=== PATIENT | female | born 1930 | race Caucasian/White ===

== ENCOUNTER 2016-11-21 17:02 | Emergency (ER) | payer MEDICARE, BC ==
[2016-11-21] MEDS ORDERED: THROMBIN (BOVINE) 5000 UNIT EPITAXIS KIT TP ONE (17:16)
[2016-11-21] MEDS ORDERED: LIDOCAINE 2% JELLY 5 ML TUBE ONE (17:25)
[2016-11-21] MEDS ORDERED: OXYMETAZOLINE HCL 0.05% NASAL SPRAY 15 ML BOTTLE ONE (17:37)
--- NOTE | 2016-11-21 21:01 | ER Document Report ---
ED ENT - General Chief Complaint: Nose Bleed Stated Complaint: NOSE BLEED Time Seen by Provider: 11/21/16 17:15 Mode of Arrival: Ambulatory Information source: Patient Notes: This is an 86-year-old female lungs are relatively presents with a left nosebleed. Patient states she's had nose bleeding on and off for the past 5 days. TRAVEL OUTSIDE OF THE [place] IN LAST 30 DAYS: No - HPI Onset: Last week Onset/Duration: Gradual Severity: None Pain Level: Denies Context: denies: Allergies, Injury, Recent Illness, Travel, Other Location of pain: No: Ears, Face, Jaw, Neck, Nose, Sinus, Throat, Tooth, Other Associated symptoms: None Similar symptoms previously: Yes Recently seen / treated by doctor: No - Related Data Allergies/Adverse Reactions: No Known Drug Allergies Allergy (Verified 05/23/15 17:31) Past Medical History - General Information source: Patient - Social History Smoking Status: Never Smoker Cigarette use (# per day): No Chew tobacco use (# tins/day): No Frequency of alcohol use: None Drug Abuse: None Lives with: Family Family History: Reviewed & Not Pertinent Patient has suicidal ideation: No Patient has homicidal ideation: No - Past Medical History Cardiac Medical History: Reports: Hx Atrial Fibrillation, Hx Hypertension Pulmonary Medical History: Reports: None EENT Medical History: Reports: Nose Neurological Medical History: Reports: Hx Migraine Endocrine Medical History: Reports: None Renal/ Medical History: Reports: None Malignancy Medical History: Reports: None GI Medical History: Reports: None Musculoskeltal Medical History: Reports Hx Arthritis - RA Psychiatric Medical History: Reports: None Traumatic Medical History: Reports: None Infectious Medical History: Reports: None Past Surgical History: Reports: Hx Cholecystectomy, Hx Hysterectomy - Immunizations Hx Diphtheria, Pertussis, Tetanus Vaccination: Yes Hx Pneumococcal Vaccination: 04/09/10 Review of Systems - Review of Systems Constitutional: denies: Chills, Fever EENT: See HPI Cardiovascular: No symptoms reported Respiratory: No symptoms reported Gastrointestinal: No symptoms reported Genitourinary: No symptoms reported Female Genitourinary: No symptoms reported Musculoskeletal: No symptoms reported Skin: No symptoms reported Hematologic/Lymphatic: No symptoms reported Neurological/Psychological: No symptoms reported Physical Exam - Vital signs Vitals: Pulse Resp BP Pulse Ox 61 16 109/80 93 11/21/16 21:18 11/21/16 21:18 11/21/16 21:18 11/21/16 21:18 Notes: Physical exam: GENERAL: 86-year-old female, alert and oriented 3, no acute distress HEAD: Atraumatic, normocephalic. EYES: Pupils equal round and reactive to light, extraocular movements intact, sclera anicteric, conjunctiva are normal. ENT: Right nosebleed. Inspection with nasal speculum and ENT head lamp: Patient does have identifiable bleed anterior ethmoid region (Kiesselbach's plexus) NECK: Normal range of motion, supple without lymphadenopathy LUNGS: Breath sounds clear to auscultation bilaterally and equal. No wheezes rales or rhonchi. HEART: Regular rate and rhythm without murmurs, rubs or gallops. ABDOMEN: Soft, normoactive bowel sounds. No tenderness to palpation. No guarding, no rebound. No masses appreciated. PSYCH: Normal mood, normal affect. SKIN: Warm, Dry, normal turgor, no rashes or lesions noted. Course - Vital Signs Vital signs: Temp Pulse Resp BP Pulse Ox 61 16 109/80 93 11/21/16 21:18 11/21/16 21:18 11/21/16 21:18 11/21/16 21:18 Procedures - Nosebleed Procedure Left Time completed: 19:00 Location: Anterior Supplies used: Thrombin-JMI Notes: Cauterization with silver nitrate Patient observed for an hour and a half with no further bleeding. Discharge - Discharge Clinical Impression: epistaxis left Clinical Impression: (Ruled Out): epistaxis left there Condition: Stable Disposition: HOME, SELF-CARE Instructions: Nosebleed Instructions ([facility]) Additional Instructions: In the emergency room: A site of bleeding was identified in the anterior ethmoid area. The site of bleeding was cauterized with silver nitrate. You were observed several hours and had no significant bleeding. Reexamination of the site shows a cauterized area is holding. Recommendations: I recommend you do not take any Xarelto until this nosebleed clears. I would call your primary care doctor tomorrow and let him know that she was seen in the emergency room and you had your nosebleed cauterized and that I recommended you come off the blood thinner. Can use the Afrin nasal spray twice daily. This is a vasoconstrictor. Return to the ER for any further bleeding: You will need to have your nose packed in the case. I would like you to call an ENT (ears, nose, throat) doctor tomorrow for follow- up appointment: Here is a group of doctors that work out of [place] (they may have an office in town). [facility] [address] [place] [address] Toll Free: Referrals: YONG CHISHOLM, ACCOUNTING ADMINISTRATOR [Primary Care Provider] - Follow up as needed
[2016-11-21 21:19] VITALS: BP 109/80
== END 2016-11-21 21:18 | disposition home or self-care (01) ==
LOC: ER 17:02
PROC: 0W3Q7ZZ Control Bleeding in Respiratory Tract, Via Natural or Artificial Opening (ICD-10-PCS; principal; 2016-11-21)
DX: R04.0 Epistaxis (principal); I48.91 Unspecified atrial fibrillation; I10 Essential (primary) hypertension; Z90.49 Acquired absence of other specified parts of digestive tract; Z90.710 Acquired absence of both cervix and uterus
CPT/HCPCS: 99283

== ENCOUNTER 2019-03-23 13:27 | Emergency (ER) | payer MEDICARE, BC ==
[2019-03-23] MEDS ORDERED: IPRATROPIUM/ALBUTEROL 0.5-2.5 MG/3 ML AMPUL NEB ONE ×2 (14:22→17:46)
--- NOTE | 2019-03-23 14:25 | ER Document Report ---
ED Medical Screen (RME) - General Chief Complaint: Dizziness Stated Complaint: DIZZINESS Time Seen by Provider: 03/23/19 14:15 Primary Care Provider: YONG CHISHOLM MA, [facility] [Primary Care Provider] - Follow up as needed Notes: Patient is a 80-year-old female history of hypertension and stroke presents emergency department with a chief complaint of dizziness. Patient states she has been dizzy for the past few months. Patient reports she is on meclizine daily. Patient reports she is also been more forgetful over the past few weeks. Patient did see the doctor this morning was sent here for an evaluation. She reports the doctor did not know that she does take meclizine daily. Patient denies chest pain. Patient states she was recently given an antibiotic for a cough that she has had for 1 month. Patient reports she continues to have productive cough that is a thick greenish mucus and intermittent wheezing. Patient denies fever. Patient denies abdominal pain, nausea, vomiting or diarrhea. Patient does have a history of a urinary incontinence. Patient states that over the past 4 nights she has noticed a noise coming from her abdomen. Patient reports last bowel movement was today and small but did not notice any blood. TRAVEL OUTSIDE OF THE [place] IN LAST 30 DAYS: No - Related Data Allergies/Adverse Reactions: codeine Allergy (Verified 03/23/19 13:33) Past Medical History - Past Medical History Cardiac Medical History: Reports: Hx Atrial Fibrillation, Hx Hypertension Neurological Medical History: Reports: Hx Migraine Musculoskeltal Medical History: Reports Hx Arthritis - RA Past Surgical History: Reports: Hx Cholecystectomy, Hx Hysterectomy - Immunizations Hx Diphtheria, Pertussis, Tetanus Vaccination: Yes Physical Exam - Vital signs Vitals: Temp Pulse BP Pulse Ox 98.0 F 57 L 172/72 H 93 03/23/19 13:36 03/23/19 13:36 03/23/19 13:36 03/23/19 13:36 - Respiratory Respiratory status: No respiratory distress Breath sounds: Productive cough, Wheezing Notes: UPPER EXPIRATORY WHEEZE BILATERALLY. - Cardiovascular Rhythm: Regular Heart sounds: Normal auscultation, S1 appreciated, S2 appreciated Course - Re-evaluation Re-evalutation: 03/23/19 14:25 I have greeted and performed a rapid initial assessment of this patient. A comprehensive ED assessment and evaluation of the patient, analysis of test results and completion of the medical decision making process will be conducted by additional ED providers. - Vital Signs Vital signs: Temp Pulse Resp BP Pulse Ox 98.0 F 57 L 172/72 H 93 03/23/19 13:36 03/23/19 13:36 03/23/19 13:36 03/23/19 13:36 Doctor's Discharge - Discharge Referrals: YONG CHISHOLM MA, CCCSLP [Primary Care Provider] - Follow up as needed
[2019-03-23 15:47] LABS: ABSOLUTE EOSINOPHILS # (AUTO) 0.1 10^3/uL (0.0-0.6); ABSOLUTE LYMPHOCYTES (AUTO) 2.1 10^3/uL (0.5-4.7); ABSOLUTE MONOCYTES (AUTO) 0.4 10^3/uL (0.1-1.4); ABSOLUTE NEUT (AUTO) 4.7 10^3/uL (1.7-8.2); BASOPHILS % (AUTO) 0.4 % (0-2); EOSINOPHILS % (AUTO) 1.3 % (0-6); HEMATOCRIT 38.7 % (36.0-47.0); HEMOGLOBIN 13.2 g/dL (12.0-15.5); MEAN CORPUSCULAR HEMOGLOBIN 31.2 pg (27.0-33.4); MEAN CORPUSCULAR VOLUME 92 fl (80-97); MONOCYTES % (AUTO) 5.4 % (3-13); PLATELET COUNT 310 10^3/uL (150-450); RED BLOOD COUNT 4.21 10^6/uL (3.72-5.28); RED CELL DISTRIBUTION WIDTH 13.2 % (11.5-14.0); SEGMENTED NEUTROPHILS % (AUTO) 63.9 % (42-78); TOTAL CELLS COUNTED % (AUTO) 100 %; WHITE BLOOD COUNT 7.3 10^3/uL (4.0-10.5)
[2019-03-23 15:48] LABS: ALBUMIN 4.2 g/dL (3.5-5.0); ALKALINE PHOSPHATASE 82 U/L (38-126); ANION GAP 7 (5-19); ASPARTATE AMINO TRANSFERASE 29 U/L (14-36); BILIRUBIN,DIRECT 0.1 mg/dL (0.0-0.4); BILIRUBIN,TOTAL 0.4 mg/dL (0.2-1.3); BLOOD UREA NITROGEN 17 mg/dL (7-20); CALCIUM 9.4 mg/dL (8.4-10.2); CARBON DIOXIDE 30 mmol/L (22-30); CHLORIDE 101 mmol/L (98-107); GLUCOSE 97 mg/dL (75-110); POTASSIUM 5.3 mmol/L (3.6-5.0); TOTAL PROTEIN 7.7 g/dL (6.3-8.2)
--- NOTE | 2019-03-23 16:00 | RADIOLOGY REPORT (SQ) ---
EXAM DESCRIPTION: CHEST 2 VIEWS COMPLETED DATE/TIME: 03/23/2019 3:47 pm REASON FOR STUDY: PRODUCTIVE COUGH COMPARISON: 05/23/2015 TECHNIQUE: Frontal and lateral radiographic views of the chest acquired. NUMBER OF VIEWS: Two view. LIMITATIONS: None. FINDINGS: LUNGS AND PLEURA: No pneumothorax. Small amount of patchy left basilar airspace disease. No pleural effusion. MEDIASTINUM AND HILAR STRUCTURES: Stable. HEART AND VASCULAR STRUCTURES: Stable. BONES: No acute findings. HARDWARE: None in the chest. OTHER: No other significant finding. IMPRESSION: Small amount of patchy left basilar airspace disease. No pleural effusion. TECHNICAL DOCUMENTATION: JOB ID: [id number] [place]-72 2010 [employer]- All Rights Reserved Reading location - IP/workstation name: [email or web address]
--- NOTE | 2019-03-23 17:49 | RADIOLOGY REPORT (SQ) ---
EXAM DESCRIPTION: CT HEAD WITHOUT COMPLETED DATE/TIME: 03/23/2019 5:25 pm REASON FOR STUDY: worsening dizziness COMPARISON: 05/23/2015 TECHNIQUE: Axial images acquired through the brain without intravenous contrast. Images reviewed wit h bone, brain and subdural windows. Images stored on PACS. All CT scanners at this facility use dose modulation, iterative reconstruction, and/or weight based d osing when appropriate to reduce radiation dose to as low as reasonably achievable (ALARA). [facility]: Dose Right [facility]: CareDose [facility]: Dose Right [facility]: Teradose 4D [facility]: CaseReader RADIATION DOSE: CT Rad equipment meets quality standard of care and radiation dose reduction techniq ues were employed. CTDIvol: 53.2 mGy. DLP: 937 mGy-cm.. LIMITATIONS: None. FINDINGS: VENTRICLES: Normal size and contour. CEREBRUM: No masses. No hemorrhage. No midline shift. Stable appearance of the white matter. No evid ence for acute infarction. CEREBELLUM: No masses. No hemorrhage. No alteration of density. No evidence for acute infarction. EXTRA-AXIAL SPACES: No fluid collections. ORBITS AND GLOBE: No intra- or extraconal masses. Normal contour of globe without masses. CALVARIUM: No fracture. PARANASAL SINUSES: No fluid or mucosal thickening. SOFT TISSUES: No mass or hematoma. OTHER: No other significant finding. IMPRESSION: NO ACUTE INTRACRANIAL FINDINGS. EVIDENCE OF ACUTE STROKE: NO. TECHNICAL DOCUMENTATION: JOB ID: [id number] [place]-72 Quality ID # [id number]: Final reports with documentation of one or more dose reduction techniques (e.g., Au tomated exposure control, adjustment of the mA and/or kV according to patient size, use of iterative reconstruction technique) 2010 [employer]- All Rights Reserved Reading location - IP/workstation name: [email or web address]
[2019-03-23 18:06] LABS: APPEARANCE,URINE SLIGHTLY-CLOUDY; BILIRUBIN,URINE NEGATIVE (NEGATIVE); COLOR,URINE YELLOW; GLUCOSE, URINE NEGATIVE (NEGATIVE); KETONES,URINE NEGATIVE (NEGATIVE); LEUKOCYTE ESTERASE,URINE LARGE (NEGATIVE); NITRITE,URINE POSITIVE (NEGATIVE); PROTEIN,URINE NEGATIVE (NEGATIVE); URINE SPECIFIC GRAVITY 1.011; UROBILINOGEN,URINE NEGATIVE mg/dL (<2.0)
[2019-03-23] MEDS ORDERED: CEPHALEXIN 500 MG CAPSULE PO ONE (18:50)
[2019-03-23] MEDS ORDERED: LEVOFLOXACIN 750 MG TABLET PO ONE (18:51)
--- NOTE | 2019-03-23 18:57 | ER Document Report ---
ED General - General Chief Complaint: Dizziness Stated Complaint: DIZZINESS Time Seen by Provider: 03/23/19 14:15 Primary Care Provider: YONG CHISHOLM [facility], [facility] [SPEECH THERAPY] - Follow up as needed TRAVEL OUTSIDE OF THE [place] IN LAST 30 DAYS: No - HPI Notes: Patient is an 88-year-old female who presents emergency department for evaluation of dizziness. She states is been ongoing but seems worse over the last several days. She had a cough and congestion, was treated for that, but seems to think that it is improving. She denies any pain of any sort. She states that she believes the dizziness is secondary to all the medication she is taking. She does not have any pain that is out of the ordinary, complains only of joint pain from arthritis." No fevers or chills. No nausea or vomiting. No dysuria, hematuria, urinary frequency. - Related Data Allergies/Adverse Reactions: codeine Allergy (Verified 03/23/19 13:33) Past Medical History - General Information source: Patient - Social History Smoking Status: Never Smoker Family History: Reviewed & Not Pertinent Patient has suicidal ideation: No Patient has homicidal ideation: No - Past Medical History Cardiac Medical History: Reports: Hx Atrial Fibrillation, Hx Hypertension Neurological Medical History: Reports: Hx Migraine Musculoskeletal Medical History: Reports Hx Arthritis - RA Past Surgical History: Reports: Hx Cholecystectomy, Hx Hysterectomy - Immunizations Hx Diphtheria, Pertussis, Tetanus Vaccination: Yes Hx Pneumococcal Vaccination: 04/09/10 Review of Systems - Review of Systems Constitutional: No symptoms reported EENT: See HPI Cardiovascular: No symptoms reported Respiratory: See HPI Gastrointestinal: No symptoms reported Genitourinary: No symptoms reported Musculoskeletal: No symptoms reported Skin: No symptoms reported Neurological/Psychological: No symptoms reported Physical Exam - Vital signs Vitals: Temp Pulse BP Pulse Ox 98.0 F 57 L 172/72 H 93 03/23/19 13:36 03/23/19 13:36 03/23/19 13:36 03/23/19 13:36 - Notes Notes: Vital signs reviewed, please refer to chart. Head is normocephalic, atraumatic. Pupils equal round, reactive to light. Neck is supple without meningismus. Heart is regular rate and rhythm. Lungs reveal mild expiratory wheezes at the base. Abdomen is soft, nontender, normoactive bowel sounds throughout. Extremities without cyanosis, clubbing. Posterior calves are nontender. Peripheral pulses are equal. Skin is warm and dry. Patient is awake, alert, oriented x3. Cranial nerves II - XII are grossly intact without focal neurological deficits. Strength is plus 5 out of 5 bilateral upper and lower extremities. Sensation is intact. Reflexes symmetrical. Intact [id number], rapid alternating movements, [id number]. Course - Re-evaluation Re-evalutation: 03/23/19 18:54 Patient presents emergency department for evaluation of dizziness. She does have some mild wheezing. Chest x-ray showed potential left basilar infiltrate, patchy. My suspicion is that this is actually an improved infiltrate, lagging behind. She also does have a nitrate positive urine specimen. She has no leukocytosis. Her vital signs are unremarkable. She is very anxious to go home, states she does not drive after dark. I did go ahead and give her a dose of Levaquin. This should cover for possible pneumonia as well as UTI. She is to follow-up with her primary care physician next week, return to the ED with worsening or new concerning symptoms of any sort. - Vital Signs Vital signs: Temp Pulse Resp BP Pulse Ox 98.0 F 57 L 172/72 H 93 03/23/19 13:36 03/23/19 13:36 03/23/19 13:36 03/23/19 13:36 - Laboratory Result Diagrams: 03/23/19 14:51 03/23/19 14:51 Laboratory results interpreted by me: 03/23/19 03/23/19 14:51 14:51 Potassium 5.3 H Est GFR (MDRD) Non-Af 56 L Urine Blood MODERATE H Urine Nitrite POSITIVE H Ur Leukocyte Esterase LARGE H - EKG Interpretation by Me Additional EKG results interpreted by me: 03/23/19 18:55 Sinus bradycardia with a rate of 51 bpm. Normal axis and intervals, no acute ST changes concerning for ischemia or infarction. Discharge - Discharge Clinical Impression: UTI (urinary tract infection), Pneumonia Condition: Stable Disposition: HOME, SELF-CARE Instructions: Urinary Tract Infection ([facility]), Dizziness ([facility]), Pneumonia ([facility]) Additional Instructions: Take all the antibiotic as prescribed, starting tomorrow. Follow-up with your doctor next week. If you develop worsening or new concerning symptoms of any sort, return immediately to the emergency department for evaluation. Referrals: YONG CHISHOLM MA, CCCSLP [SPEECH THERAPY] - Follow up as needed
[2019-03-23 19:28] VITALS: BP 150/72
--- NOTE | 2019-03-23 19:45 | EKG REPORT ---
SEVERITY:- NORMAL ECG - SINUS RHYTHM : Confirmed by: Aydee Rosales MD 23-Mar-2019 19:45:26
== END 2019-03-23 19:00 | disposition home or self-care (01) ==
LOC: ER 13:27
DX: N39.0 Urinary tract infection, site not specified (principal); J18.9 Pneumonia, unspecified organism; R00.1 Bradycardia, unspecified; R42 Dizziness and giddiness; M19.90 Unspecified osteoarthritis, unspecified site; I10 Essential (primary) hypertension; Z88.5 Allergy status to narcotic agent; R06.2 Wheezing
CPT/HCPCS: 99284; 36415; 85025; 80053; 81001; 71046; 70450; 93005; 93010; A9270

== ENCOUNTER → 2019-06-27 | Outpatient (CLI) | payer MEDICARE, BC ==
--- NOTE | 2019-06-27 13:44 | RADIOLOGY REPORT (SQ) ---
EXAM DESCRIPTION: CHEST 2 VIEWS COMPLETED DATE/TIME: 06/27/2019 1:08 pm REASON FOR STUDY: WHEEZING (R06.2) COMPARISON: Chest films 03/23/2019, 05/23/2015, 12/06/2012 EXAM PARAMETERS: NUMBER OF VIEWS: two views TECHNIQUE: Digital Frontal and Lateral radiographic views of the chest acquired. RADIATION DOSE: NA LIMITATIONS: none FINDINGS: LUNGS AND PLEURA: Chronic lingular scarring unchanged from 2012. No acute infiltrates. No pleural effusion. No pneumothorax. MEDIASTINUM AND HILAR STRUCTURES: No masses or contour abnormalities. HEART AND VASCULAR STRUCTURES: Heart normal size. No evidence for failure. BONES: No acute findings. HARDWARE: Clips right upper quadrant post cholecystectomy. OTHER: No other significant finding. IMPRESSION: NO ACUTE RADIOGRAPHIC FINDING IN THE CHEST. TECHNICAL DOCUMENTATION: JOB ID: [id number] [employer]- All Rights Reserved Reading location - IP/workstation name: [email or web address]
== END ==
LOC: RAD 12:34
PROVIDERS: ATTEND Family Medicine Geriatric Medicine
DX: R06.2 Wheezing (principal)
CPT/HCPCS: 71046

== ENCOUNTER → 2019-07-17 | Outpatient (CLI) | payer MEDICARE, BC ==
[2019-07-17 14:21] LABS: ABSOLUTE EOSINOPHILS # (AUTO) 0.1 10^3/uL (0.0-0.6); ABSOLUTE LYMPHOCYTES (AUTO) 2.1 10^3/uL (0.5-4.7); ABSOLUTE MONOCYTES (AUTO) 0.5 10^3/uL (0.1-1.4); ABSOLUTE NEUT (AUTO) 3.1 10^3/uL (1.7-8.2); BASOPHILS % (AUTO) 0.4 % (0-2); EOSINOPHILS % (AUTO) 1.9 % (0-6); HEMOGLOBIN 14.3 g/dL (12.0-15.5); LYMPHOCYTES % (AUTO) 35.8 % (13-45); MEAN CORPUSCULAR HEMOGLOBIN 31.7 pg (27.0-33.4); MEAN CORPUSCULAR VOLUME 93 fl (80-97); PLATELET COUNT 214 10^3/uL (150-450); RED BLOOD COUNT 4.51 10^6/uL (3.72-5.28); SEGMENTED NEUTROPHILS % (AUTO) 52.9 % (42-78); TOTAL CELLS COUNTED % (AUTO) 100 %; WHITE BLOOD COUNT 5.8 10^3/uL (4.0-10.5)
[2019-07-17 14:44] LABS: ALBUMIN 4.8 g/dL (3.5-5.0); ALKALINE PHOSPHATASE 84 U/L (38-126); ANION GAP 11 (5-19); ASPARTATE AMINO TRANSFERASE 29 U/L (14-36); BILIRUBIN,DIRECT 0.3 mg/dL (0.0-0.4); BILIRUBIN,TOTAL 0.4 mg/dL (0.2-1.3); BLOOD UREA NITROGEN 16 mg/dL (7-20); CALCIUM 10.1 mg/dL (8.4-10.2); CARBON DIOXIDE 30 mmol/L (22-30); CHLORIDE 100 mmol/L (98-107); CHOLESTEROL 214.81 mg/dL (0-200); GLUCOSE 94 mg/dL (75-110); POTASSIUM 4.8 mmol/L (3.6-5.0); TOTAL PROTEIN 8.7 g/dL (6.3-8.2); TRIGLYCERIDES 107 mg/dL (<150)
[2019-07-17 14:55] LABS: DIRECT LDL 174 mg/dL (<100)
--- NOTE | 2019-07-19 11:05 | Pulmonary Function Test ---
Pulmonary Function Test Date of Procedure:: 07/17/19 INDICATION:: Dyspnea Referring Provider: Dr. Monique Builder Beam: Ana Schumacher, DEBT COUNSELOR, OYSTER PREPARER - Report Spirometry: Spirometry: pre-FVC: 2.04 L 107% pre-FEV:1 1.25 L 96% pre-FEV1/FVC %: 62 predicted: [81] [id number]%: 0.52 L 54% Lung Volume: Total lung capacity: 2.76 L 75% Vital capacity: 2.04 L 107% Inspiratory capacity: 1.52 L FRC N2: 1.24 L 56% ERV: 0.14 L RV: 0.72 L 43% RV/TLC %:: 26 predicted 45 Diffusion Capactity: DLCO: 12.2 87% DLCO/VA: 3.95 122% Impression: Mild obstructive ventilatory defect. Mild restrictive ventilatory defect. (Restrictive defect may match the degree of obstruction.) No evidence for hyperinflation or air trapping. Normal diffusion capacity.
== END ==
LOC: RT 12:33
PROVIDERS: ATTEND Family Medicine Geriatric Medicine
DX: I10 Essential (primary) hypertension (principal); R06.2 Wheezing; E03.9 Hypothyroidism, unspecified; I25.10 Atherosclerotic heart disease of native coronary artery without angina pectoris; E55.9 Vitamin D deficiency, unspecified; K21.9 Gastro-esophageal reflux disease without esophagitis; Z79.899 Other long term (current) drug therapy
CPT/HCPCS: 36415; 80053; 80061; 82306; 84443; 85025; 94010; 94727; 94729

== ENCOUNTER 2019-09-20 11:43 | Emergency (ER) | payer MEDICARE, BC ==
--- NOTE | 2019-09-20 12:15 | ER Document Report ---
ED Medical Screen (RME) - General Chief Complaint: Flank Pain Stated Complaint: FLANK PAIN Time Seen by Provider: 09/20/19 12:12 Primary Care Provider: JORGE HEADLEY MD [Primary Care Provider] - Follow up as needed Information source: Patient Notes: This is an 88-year-old female who presented to the emergency room today stating she had pain and discomfort to her right chest and right shoulder over the course of multiple days. She does state that she went to see a urologist on Monday and had a study to see if she was a candidate for a pessary. I am wondering if there was possibly CO2 used to increase visualization which was pulled under the right shoulder however with her age and risk factors is still felt that complete cardiac evaluation would be warranted. TRAVEL OUTSIDE OF THE [place] IN LAST 30 DAYS: No - Related Data Allergies/Adverse Reactions: No Known Allergies Allergy (Verified 09/20/19 12:08) Past Medical History - Past Medical History Cardiac Medical History: Reports: Hx Atrial Fibrillation, Hx Hypertension Neurological Medical History: Reports: Hx Migraine Musculoskeltal Medical History: Reports Hx Arthritis - RA Past Surgical History: Reports: Hx Cholecystectomy, Hx Hysterectomy - Immunizations Hx Diphtheria, Pertussis, Tetanus Vaccination: Yes Physical Exam - Vital signs Vitals: Temp Pulse Resp BP Pulse Ox 97.9 F 64 16 95/78 L 94 09/20/19 11:47 09/20/19 11:47 09/20/19 11:47 09/20/19 11:47 09/20/19 11:47 - Cardiovascular Rhythm: Regular Heart sounds: Normal auscultation Murmur: No Course - Vital Signs Vital signs: Temp Pulse Resp BP Pulse Ox 97.9 F 64 16 95/78 L 94 09/20/19 11:47 09/20/19 11:47 09/20/19 11:47 09/20/19 11:47 09/20/19 11:47 Doctor's Discharge - Discharge Referrals: JORGE HEADLEY MD [Primary Care Provider] - Follow up as needed
--- NOTE | 2019-09-20 13:01 | ER Document Report ---
ED General - General Chief Complaint: Pain All Over Stated Complaint: FLANK PAIN Time Seen by Provider: 09/20/19 12:12 Primary Care Provider: JORGE HEADLEY MD [Primary Care Provider] - Follow up as needed Mode of Arrival: Ambulatory Information source: Patient, [facility] Records Notes: 88-year-old female with atrial fibrillation, hypertension, hypothyroidism, previous CVA presents with vague symptoms of abdominal pain, back pain. Review of RME note says patient was complaining of right sided chest pain but patient denies any chest or arm pain to me. Currently patient is stating that she has abdominal distention, low back pain and has had difficulty urinating and having bowel movements. She reports having a procedure done by a urologist 1 week ago to assess if she was a candidate for pessary and her pain has been present since that time. Patient denies any fever, chills, nausea, vomiting. Patient does take tramadol chronically for arthritis. TRAVEL OUTSIDE OF THE [place] IN LAST 30 DAYS: No - HPI Onset: Last week Onset/Duration: Gradual, Persistent Quality of pain: Achy Severity: Mild Associated symptoms: Other - Urinary retention, constipation, abdominal fullness. denies: Chest pain, Chills, Nonproductive cough, Productive cough, Fever, Nausea, Vomiting, Shortness of breath Exacerbated by: Denies Relieved by: Denies Similar symptoms previously: No Recently seen / treated by doctor: Yes - Related Data Allergies/Adverse Reactions: No Known Allergies Allergy (Verified 09/20/19 12:08) Past Medical History - General Information source: Patient - Social History Smoking Status: Never Smoker Frequency of alcohol use: None Drug Abuse: None Lives with: Alone Family History: Reviewed & Not Pertinent Patient has suicidal ideation: No Patient has homicidal ideation: No - Past Medical History Cardiac Medical History: Reports: Hx Atrial Fibrillation, Hx Hypertension Neurological Medical History: Reports: Hx Migraine Musculoskeletal Medical History: Reports Hx Arthritis - RA Past Surgical History: Reports: Hx Cholecystectomy, Hx Hysterectomy - Immunizations Hx Diphtheria, Pertussis, Tetanus Vaccination: Yes Hx Pneumococcal Vaccination: 04/09/10 Review of Systems - Review of Systems Notes: REVIEW OF SYSTEMS: CONSTITUTIONAL : Denies fever, chills, or sweats. Denies recent illness. Denies weight loss, recent hospitalizations. EENT: Denies visual changes, eye pain. Denies sore throat, oral lesions, difficulty swallowing. CARDIOVASCULAR: Denies chest pain. Denies palpitations. Denies lower extremity edema. RESPIRATORY: Denies cough. Denies shortness of breath, wheezing. GASTROINTESTINAL: Denies abdominal pain + distention. Denies nausea, vomiting, or diarrhea. Denies blood in vomitus, stools, or per rectum. Denies black, tarry stools. Denies constipation. GENITOURINARY: + difficulty urinating, denies painful urination, frequency, blood in urine, or vaginal discharge. MUSCULOSKELETAL: + back denies neck pain or stiffness. Denies joint pain or swelling. SKIN: Denies rash, lesions or sores. HEMATOLOGIC : Denies easy bruising or bleeding. LYMPHATIC: Denies swollen glands. NEUROLOGICAL: Denies confusion or altered mental status. Denies loss of consciousness. Denies dizziness or lightheadedness. Denies headache. Denies weakness or paralysis. Denies problems difficulty with ambulation, slurred speech. Denies sensory loss, numbness, or tingling. Denies seizures. PSYCHIATRIC: Denies anxiety or stress. Denies depression, suicidal ideation, or homicidal ideation. Denies visual or auditory hallucinations. Physical Exam - Vital signs Vitals: Temp Pulse Resp BP Pulse Ox 97.9 F 64 16 95/78 L 94 09/20/19 11:47 09/20/19 11:47 09/20/19 11:47 09/20/19 11:47 09/20/19 11:47 - Notes Notes: PHYSICAL EXAMINATION: GENERAL: Well-appearing, well-nourished and in no acute distress. HEAD: Atraumatic, normocephalic. EYES: Pupils equal round and reactive to light, extraocular movements intact, conjunctiva are normal. ENT: Nares patent, oropharynx clear without exudates. Moist mucous membranes. NECK: Normal range of motion, supple without lymphadenopathy LUNGS: Breath sounds clear to auscultation bilaterally and equal. No wheezes rales or rhonchi. HEART: Regular rate and rhythm without murmurs ABDOMEN: Soft, nontender, distended abdomen. No guarding, no rebound. No masses appreciated. Female : deferred Musculoskeletal: Normal range of motion, no pitting or edema. No cyanosis. NEUROLOGICAL: Cranial nerves grossly intact. Normal speech, normal gait. Normal sensory, motor exams PSYCH: Normal mood, normal affect. SKIN: Warm, Dry, normal turgor, no rashes or lesions noted. Course - Re-evaluation Re-evalutation: Laboratory 09/20/19 09/20/19 09/20/19 12:55 12:55 12:55 WBC 7.4 RBC 4.21 Hgb 13.6 Hct 38.9 MCV 93 MCH 32.3 MCHC 34.9 RDW 13.7 Plt Count 292 Lymph % (Auto) 30.5 [place] % (Auto) 9.6 Eos % (Auto) 1.4 Baso % (Auto) 0.9 Absolute Neuts (auto) 4.3 Absolute Lymphs (auto) 2.3 Absolute Monos (auto) 0.7 Absolute Eos (auto) 0.1 Absolute Basos (auto) 0.1 Seg Neutrophils % 57.6 Sodium 137.7 Potassium 5.5 H Chloride 102 Carbon Dioxide 27 Anion Gap 9 BUN 42 H Creatinine 1.52 H Est GFR ( Amer) 39 L Est GFR (MDRD) Non-Af 32 L Glucose 98 Calcium 9.1 Total Bilirubin 0.5 Direct Bilirubin 0.0 Neonat Total Bilirubin Not Reportable Neonat Direct Bilirubin Not Reportable Neonat Indirect Bili Not Reportable AST 28 ALT 14 Alkaline Phosphatase 66 Creatine Kinase 162 H CK-MB (CK-2) 1.55 Troponin I 0.051 Total Protein 7.8 Albumin 4.2 Urine Color Urine Appearance Urine pH Ur Specific [place] Urine Protein Urine Glucose (UA) Urine Ketones Urine Blood Urine Nitrite Urine Bilirubin Urine Urobilinogen Ur Leukocyte Esterase Urine WBC (Auto) Urine RBC (Auto) Urine Bacteria (Auto) Urine WBC Clumps Urine Yeast (Budding) Urine Ascorbic Acid 09/20/19 09/20/19 13:15 15:12 WBC RBC Hgb Hct MCV MCH MCHC RDW Plt Count Lymph % (Auto) [place] % (Auto) Eos % (Auto) Baso % (Auto) Absolute Neuts (auto) Absolute Lymphs (auto) Absolute Monos (auto) Absolute Eos (auto) Absolute Basos (auto) Seg Neutrophils % Sodium Potassium Chloride Carbon Dioxide Anion Gap BUN Creatinine Est GFR ( Amer) Est GFR (MDRD) Non-Af Glucose Calcium Total Bilirubin Direct Bilirubin Neonat Total Bilirubin Neonat Direct Bilirubin Neonat Indirect Bili AST ALT Alkaline Phosphatase Creatine Kinase CK-MB (CK-2) Troponin I 0.056 Total Protein Albumin Urine Color YELLOW Urine Appearance TURBID Urine pH 7.0 Ur Specific [place] 1.012 Urine Protein 100 H Urine Glucose (UA) NEGATIVE Urine Ketones NEGATIVE Urine Blood SMALL H Urine Nitrite POSITIVE H Urine Bilirubin NEGATIVE Urine Urobilinogen NEGATIVE Ur Leukocyte Esterase LARGE H Urine WBC (Auto) >182 Urine RBC (Auto) 14 Urine Bacteria (Auto) 3+ Urine WBC Clumps MANY Urine Yeast (Budding) PRESENT Urine Ascorbic Acid NEGATIVE Abdomen/Pelvis CT 09/20/19 12:55 IMPRESSION: 1. Severe right-sided hydroureteronephrosis to the level of the urinary bladder. There is associated urothelial enhancement of the ureter and periureteral stranding suggestive of pyelonephritis. Questionable right-sided bladder wall thickening, partially evaluated, raises the suspicion for malignancy. Recommend correlation with urinalysis. Urology evaluation and cystoscopy should be considered for further evaluation. 2. Nonobstructing 13 mm right renal stone. 3. No other evidence of acute intra-abdominal/pelvic process. Additional incidental findings as above. Findings discussed with Dr. Mary at 1414 hours on 09/20/2019 Chest X-Ray 09/20/19 12:55 IMPRESSION: NO ACUTE RADIOGRAPHIC FINDING IN THE CHEST. Temp Pulse Resp BP Pulse Ox 97.9 F 64 20 126/64 H 97 09/20/19 11:47 09/20/19 11:47 09/20/19 15:01 09/20/19 15:01 09/20/19 15:01 09/20/19 15:54 Spoke to our hospitalist regarding CT findings and recommend that patient be transferred where there is urology. 09/20/19 16:42 09/20/19 18:18 Spoke to patient's [id number] who states that patient has had a significant progression in her dementia. Patient found to have a significant urinary tract infection which ceftriaxone was given. Patient also has findings of severe right-sided hydronephrosis with right-sided bladder wall thickening concerning for malignancy but without evidence of obstruction. [facility] was contacted for admission and accepted by Dr. Aly. Soto placed as requested. Ultrasound performed prior to Soto placement and showed no evidence of urinary retention. - Vital Signs Vital signs: Temp Pulse Resp BP Pulse Ox 97.9 F 64 18 107/87 H 95 09/20/19 11:47 09/20/19 11:47 09/20/19 17:13 09/20/19 17:13 09/20/19 17:13 - Laboratory Result Diagrams: 09/20/19 12:55 09/20/19 12:55 Laboratory results interpreted by me: 09/20/19 09/20/19 12:55 13:15 Potassium 5.5 H BUN 42 H Creatinine 1.52 H Est GFR ( Amer) 39 L Est GFR (MDRD) Non-Af 32 L Creatine Kinase 162 H Urine Protein 100 H Urine Blood SMALL H Urine Nitrite POSITIVE H Ur Leukocyte Esterase LARGE H - Diagnostic Test Radiology reviewed: Image reviewed, Reports reviewed - EKG Interpretation by Me EKG shows normal: Sinus rhythm Rate: Normal Rhythm: NSR When compared to previous EKG there are: No significant change Discharge - Discharge Clinical Impression: Acute kidney injury, Elevated troponin Urinary tract infection Qualifiers: Urinary tract infection type: acute cystitis Hematuria presence: with hematuria Qualified Code(s): N30.01 - Acute cystitis with hematuria Hydronephrosis Qualifiers: Hydronephrosis type: unspecified Qualified Code(s): N13.30 - Unspecified hydronephrosis Dementia Qualifiers: Dementia type: unspecified type Dementia behavioral disturbance: without behavioral disturbance Qualified Code(s): F03.90 - Unspecified dementia without behavioral disturbance Condition: Good Disposition: [facility] Referrals: JORGE HEADLEY MD [Primary Care Provider] - Follow up as needed
[2019-09-20 13:05] LABS: ABSOLUTE BASOPHILS # (AUTO) 0.1 10^3/uL (0.0-0.2); ABSOLUTE EOSINOPHILS # (AUTO) 0.1 10^3/uL (0.0-0.6); ABSOLUTE LYMPHOCYTES (AUTO) 2.3 10^3/uL (0.5-4.7); ABSOLUTE MONOCYTES (AUTO) 0.7 10^3/uL (0.1-1.4); ABSOLUTE NEUT (AUTO) 4.3 10^3/uL (1.7-8.2); BASOPHILS % (AUTO) 0.9 % (0-2); EOSINOPHILS % (AUTO) 1.4 % (0-6); HEMATOCRIT 38.9 % (36.0-47.0); HEMOGLOBIN 13.6 g/dL (12.0-15.5); LYMPHOCYTES % (AUTO) 30.5 % (13-45); MEAN CORPUSCULAR HEMOGLOBIN 32.3 pg (27.0-33.4); MEAN CORPUSCULAR HGB CONC 34.9 g/dL (32.0-36.0); MEAN CORPUSCULAR VOLUME 93 fl (80-97); MONOCYTES % (AUTO) 9.6 % (3-13); PLATELET COUNT 292 10^3/uL (150-450); RED BLOOD COUNT 4.21 10^6/uL (3.72-5.28); RED CELL DISTRIBUTION WIDTH 13.7 % (11.5-14.0); SEGMENTED NEUTROPHILS % (AUTO) 57.6 % (42-78); TOTAL CELLS COUNTED % (AUTO) 100 %; WHITE BLOOD COUNT 7.4 10^3/uL (4.0-10.5)
[2019-09-20 13:26] LABS: ALBUMIN 4.2 g/dL (3.5-5.0); ALKALINE PHOSPHATASE 66 U/L (38-126); ANION GAP 9 (5-19); ASPARTATE AMINO TRANSFERASE 28 U/L (14-36); BILIRUBIN,TOTAL 0.5 mg/dL (0.2-1.3); BLOOD UREA NITROGEN 42 mg/dL (7-20); CALCIUM 9.1 mg/dL (8.4-10.2); CARBON DIOXIDE 27 mmol/L (22-30); CHLORIDE 102 mmol/L (98-107); CREATINE KINASE 162 U/L (30-135); GLUCOSE 98 mg/dL (75-110); POTASSIUM 5.5 mmol/L (3.6-5.0); TOTAL PROTEIN 7.8 g/dL (6.3-8.2)
[2019-09-20 13:38] LABS: APPEARANCE,URINE TURBID; BILIRUBIN,URINE NEGATIVE (NEGATIVE); COLOR,URINE YELLOW; GLUCOSE, URINE NEGATIVE (NEGATIVE); KETONES,URINE NEGATIVE (NEGATIVE); LEUKOCYTE ESTERASE,URINE LARGE (NEGATIVE); NITRITE,URINE POSITIVE (NEGATIVE); PROTEIN,URINE 100 mg/dL (NEGATIVE); URINE SPECIFIC GRAVITY 1.012; UROBILINOGEN,URINE NEGATIVE mg/dL (<2.0)
[2019-09-20 13:38] LABS: CREATINE KINASE MB 1.55 ng/mL (<4.55)
[2019-09-20] MEDS ORDERED: CEFTRIAXONE 1 GM/D5W RTU 1 GM/50 ML RTUPB IV ONE (13:39)
[2019-09-20 13:42] LABS: TROPONIN I 0.051 ng/mL
[2019-09-20] MEDS ORDERED: ASPIRIN 81 MG TABLET, CHEWABLE PO ONE (13:45)
--- NOTE | 2019-09-20 14:21 | RADIOLOGY REPORT (SQ) ---
EXAM DESCRIPTION: CT ABD/PELVIS WITH IV ONLY COMPLETED DATE/TIME: 09/20/2019 1:55 pm REASON FOR STUDY: abd pain COMPARISON: None. TECHNIQUE: CT scan of the abdomen and pelvis performed using helical scanning technique with dynamic intravenous contrast injection. No oral contrast. Images reviewed with lung, soft tissue, and bone windows. Reconstructed coronal and sagittal MPR images reviewed. Delayed images for evaluation of the urinary system also acquired. All images stored on PACS. All CT scanners at this facility use dose modulation, iterative reconstruction, and/or weight based d osing when appropriate to reduce radiation dose to as low as reasonably achievable (ALARA). [facility]: Dose Right [facility]: CareDose [facility]: Dose Right [facility]: Teradose 4D [facility]: [employer] CONTRAST TYPE AND DOSE: contrast/concentration: Isovue 300.00 mg/ml; Total Contrast Delivered: 50.0 ml; Total Saline Delivered: 57.0 ml RENAL FUNCTION: Creatinine 0.42 RADIATION DOSE: CT Rad equipment meets quality standard of care and radiation dose reduction techniq ues were employed. CTDIvol: 7.3 - 9.8 mGy. DLP: 1418 mGy-cm.. LIMITATIONS: None. FINDINGS: LOWER CHEST: No significant findings. No nodules or infiltrates. LIVER: Normal size. Right hepatic lobe cyst. No solid masses. No intrahepatic ductal dilation. . SPLEEN: Normal size. No focal lesions. PANCREAS: No masses. No significant calcifications. No adjacent inflammation or peripancreatic fluid collections. Pancreatic duct not dilated. GALLBLADDER: Surgically absent. ADRENAL GLANDS: No significant masses or asymmetry. RIGHT KIDNEY AND URETER: No solid masses. Diffuse cortical thinning. Severe right-sided hydroureter onephrosis to the level of the urinary bladder. There is irregular right-sided bladder wall thickeni ng, partially evaluated. Nonobstructing stone within the renal collecting system measuring 13 mm ([place] units greater than 1,000). LEFT KIDNEY AND URETER: No solid masses. Diffuse cortical thinning. Mild fullness of the extrarenal pelvis without caliceal dilation. . No significant calcifications. AORTA AND VESSELS: Aortoiliac atherosclerosis without aneurysm. No dissection. Renal arteries, SMA, c eliac without stenosis. RETROPERITONEUM: No retroperitoneal adenopathy, hemorrhage or masses. BOWEL AND PERITONEAL CAVITY: Scattered colonic diverticula. No evidence of intestinal obstruction. No focal bowel wall thickening. APPENDIX: Not identified. PELVIS: Incompletely distended urinary bladder with questionable mild asymmetric wall thickening ilir g the right posterior aspect. No pelvic free fluid. No adenopathy. ABDOMINAL WALL: No soft tissue mass. Tiny fat containing left inguinal hernia. Evidence of prior mi dline hernia repair. BONES: No acute bony abnormality. No suspicious lytic or blastic osseous lesions. OTHER: No other significant finding. IMPRESSION: 1. Severe right-sided hydroureteronephrosis to the level of the urinary bladder. There is associated urothelial enhancement of the ureter and periureteral stranding suggestive of pyelonep hritis. Questionable right-sided bladder wall thickening, partially evaluated, raises the suspicion for malignancy. Recommend correlation with urinalysis. Urology evaluation and cystoscopy should be considered for further evaluation. 2. Nonobstructing 13 mm right renal stone. 3. No other evidence of acute intra-abdominal/pelvic process. Additional incidental findings as abo ve. Findings discussed with Dr. Mary at 1414 hours on 09/20/2019 TECHNICAL DOCUMENTATION: JOB ID: [id number] Quality ID # [id number]: Final reports with documentation of one or more dose reduction techniques (e.g., Au tomated exposure control, adjustment of the mA and/or kV according to patient size, use of iterative reconstruction technique) 2010 [employer]- All Rights Reserved Reading location - IP/workstation name: [email or web address]
--- NOTE | 2019-09-20 14:22 | RADIOLOGY REPORT (SQ) ---
EXAM DESCRIPTION: CHEST 2 VIEWS COMPLETED DATE/TIME: 09/20/2019 2:09 pm REASON FOR STUDY: pain COMPARISON: 06/27/2018 EXAM PARAMETERS: NUMBER OF VIEWS: two views TECHNIQUE: Digital Frontal and Lateral radiographic views of the chest acquired. RADIATION DOSE: NA LIMITATIONS: none FINDINGS: LUNGS AND PLEURA: No opacities, masses or pneumothorax. No pleural effusion. MEDIASTINUM AND HILAR STRUCTURES: No masses or contour abnormalities. HEART AND VASCULAR STRUCTURES: Heart normal size. No evidence for failure. Vascular calcifications. BONES: No acute findings. HARDWARE: None in the chest. Cholecystectomy clips. OTHER: No other significant finding. IMPRESSION: NO ACUTE RADIOGRAPHIC FINDING IN THE CHEST. TECHNICAL DOCUMENTATION: JOB ID: [id number] 2010 [employer]- All Rights Reserved Reading location - IP/workstation name: [email or web address]
[2019-09-20] MEDS ORDERED: MORPHINE SULFATE 10 MG/ML INJ IV ONE (15:08)
--- NOTE | 2019-09-20 18:19 | EKG REPORT ---
SEVERITY:- BORDERLINE ECG - SINUS RHYTHM ATRIAL PREMATURE COMPLEXES VS SINUS ARRHYTMIA BORDERLINE T ABNORMALITIES, ANT-LAT LEADS : Confirmed by: Suzie Pandya 20-Sep-2019 18:18:32
--- NOTE | 2019-09-20 18:19 | EKG REPORT ---
SEVERITY:- BORDERLINE ECG - SINUS RHYTHM ATRIAL PREMATURE COMPLEX LOW VOLTAGE THROUGHOUT BORDERLINE T ABNORMALITIES, ANTERIOR LEADS : Confirmed by: Suzie Pandya 20-Sep-2019 18:19:02
[2019-09-20 18:56] VITALS: BP 113/82
== END 2019-09-20 19:59 | disposition short-term general hospital (02) ==
LOC: ER 11:43
DX: N30.01 Acute cystitis with hematuria (principal); N13.30 Unspecified hydronephrosis; N17.9 Acute kidney failure, unspecified; R79.89 Other specified abnormal findings of blood chemistry; R14.0 Abdominal distension (gaseous); M54.5 Low back pain; R10.9 Unspecified abdominal pain; M54.9 Dorsalgia, unspecified; R31.9 Hematuria, unspecified; I48.91 Unspecified atrial fibrillation; I10 Essential (primary) hypertension
CPT/HCPCS: 93005; 99285; 96375; 96365; 36415; 87086; 82553; 82550; 85025; 87088; 80053; 81001; 84484; 87186; 71046; 74177; 93010; A9270; J2270; J0696

== ENCOUNTER → 2019-11-04 | Outpatient (CLI) | payer MEDICARE, BC ==
[2019-11-04 15:23] LABS: TRIGLYCERIDES 142 mg/dL (<150)
[2019-11-04 15:34] LABS: DIRECT LDL 111 mg/dL (<100)
--- NOTE | 2019-11-04 17:24 | RADIOLOGY REPORT (SQ) ---
EXAM DESCRIPTION: SHOULDER RIGHT 2 OR MORE VIEWS IMAGES COMPLETED DATE/TIME: 11/04/2019 2:53 pm REASON FOR STUDY: RT FACIAL INJURY; RT SHOULDER INJURY COMPARISON: None. NUMBER OF VIEWS: Three views right shoulder. LIMITATIONS: None. FINDINGS: Potential laxity with minimal inferior subluxation. Generalized osteopenia without fractu re or separation evident. Right lung clear. OTHER: No other significant finding. IMPRESSION: As above. TECHNICAL DOCUMENTATION: JOB ID: [id number] Reading location - IP/workstation name: [email or web address]
--- NOTE | 2019-11-04 17:25 | RADIOLOGY REPORT (SQ) ---
EXAM DESCRIPTION: FACIAL BONES IMAGES COMPLETED DATE/TIME: 11/04/2019 2:53 pm REASON FOR STUDY: RT FACIAL INJURY; RT SHOULDER INJURY E78.5 HYPERLIPIDEMIA, UNSPECIFIED Z79.899 O THER RETIREMENT (CURRENT) DRUG THERAPY S49.91XA UNSP INJURY OF RIGHT SHOULDER AND UPPER ARM, INIT E COMPARISON: None. NUMBER OF VIEWS: Three view. TECHNIQUE: Images of the facial bones acquired. LIMITATIONS: None. FINDINGS: ORBITS: No fracture. No foreign body. SINUSES: No mucosal thickening. No air fluid levels. FACIAL BONES: No fracture. OTHER: No other significant finding. IMPRESSION: NO FOREIGN BODY OR FRACTURE OF THE FACIAL BONES. TECHNICAL DOCUMENTATION: JOB ID: [id number] 2010 [employer]- All Rights Reserved Reading location - IP/workstation name: [email or web address]
== END ==
LOC: OD 14:24
PROVIDERS: ATTEND Family Medicine Geriatric Medicine
DX: S09.93XA Unspecified injury of face, initial encounter (principal); S49.91XA Unspecified injury of right shoulder and upper arm, initial encounter; X58.XXXA Exposure to other specified factors, initial encounter; E78.5 Hyperlipidemia, unspecified; I69.354 Hemiplegia and hemiparesis following cerebral infarction affecting left non-dominant side; Z79.899 Other long term (current) drug therapy
CPT/HCPCS: 36415; 70150; 80061; 84443; 84460

== ENCOUNTER → 2019-12-16 | Outpatient (CLI) | payer MEDICARE, BC ==
[2019-12-16 17:51] LABS: CHOLESTEROL 165.86 mg/dL (0-200); TRIGLYCERIDES 74 mg/dL (<150)
[2019-12-16 18:01] LABS: DIRECT LDL 117 mg/dL (<100)
== END ==
LOC: OD 16:35
PROVIDERS: ATTEND Family Medicine Geriatric Medicine
DX: E78.5 Hyperlipidemia, unspecified (principal); E03.9 Hypothyroidism, unspecified; Z79.899 Other long term (current) drug therapy
CPT/HCPCS: 36415; 80061; 84443; 84460

== ENCOUNTER → 2020-04-28 | Outpatient (CLI) | payer MEDICARE, BC ==
[2020-04-28 13:33] LABS: CHOLESTEROL 140.28 mg/dL (0-200); TRIGLYCERIDES 97 mg/dL (<150)
[2020-04-28 13:43] LABS: DIRECT LDL 79 mg/dL (<100)
== END ==
LOC: OD 11:43
PROVIDERS: ATTEND Family Medicine Geriatric Medicine
DX: E78.5 Hyperlipidemia, unspecified (principal); E03.9 Hypothyroidism, unspecified; Z79.899 Other long term (current) drug therapy
CPT/HCPCS: 36415; 80061; 84443; 84460